=== PATIENT | male | born 2000 | race Caucasian/White ===

== ENCOUNTER 2023-06-26 13:55 | Outpatient (CLI) | payer BC, OTHER, SELFPAY | END 2023-06-26 13:56 | disposition home or self-care (01) | LOC: NFLDREF 13:56 | PROVIDERS: PCP Family Medicine; Visit Provider Family Medicine | DX: I47.10 Supraventricular tachycardia, unspecified (principal) | CPT/HCPCS: 80053 ==

== ENCOUNTER 2025-05-05 14:10 | Outpatient (CLI) | payer OTHER, SELFPAY | END 2025-05-05 14:11 | disposition home or self-care (01) | LOC: NFLDREF 05-09 07:29 | PROVIDERS: PCP Family Medicine; Referring Provider Family Medicine; Visit Provider Family Medicine | DX: Z13.1 Encounter for screening for diabetes mellitus (principal); Z00.00 Encounter for general adult medical examination without abnormal findings; Z13.6 Encounter for screening for cardiovascular disorders; Z13.29 Encounter for screening for other suspected endocrine disorder | CPT/HCPCS: 80053; 80061; 84439; 84443 ==